=== PATIENT | female | born 1955 | race Caucasian/White ===

== ENCOUNTER 2017-05-25 16:47 | Inpatient (IN) | payer MEDICAID ==
--- NOTE | 2017-05-25 18:41 | PCM.HP ---
H&P History of Present Illness - General Date of Service: 05/25/17 Source of Information: Patient History Limitations: Reports: No Limitations - History of Present Illness Initial Comments - Free Text/Narative: This 62 year old white female originally from [facility] noted onset of diffuse abdominal pain last night which subsequently moved to her right lower quadrant. Nausea came on after the pain. It did not improve today so she sought medical care. She has not had similar complaints in the past. No fever nor chills. Her nausea has resolved. In the clinic she was found to be afebrile. WBC was normal at 10,000. CT of her abdomen and pelvis was ordered which return a dilated appendix at 14 mm with associated fat stranding consistent with acute non-perforated appendicitis. She went home after her CT and was called back in. At home she had a small salad and two small crackers. She is not anorexic. She is admitted for a laparoscopic appendectomy. Prior abdominal surgery consists of excision of a tubal in about 1979. Duration of Symptoms: Reports: Day(s): (Started last night.) Location: Reports: Abdomen Improves with: Reports: None Worsens with: Reports: None Associated Symptoms: Reports: Nausea/Vomiting (No vomiting. Nausea has resolved. ) - Related Data Allergies/Adverse Reactions: Allergies Allergy/AdvReac Type Severity Reaction Status Date / Time No Known Allergies Allergy Verified 05/25/17 12:45 Home Medications: Home Meds Bisoprolol [Zebeta] 5 mg PO DAILY 05/25/17 [History] Loratadine [Claritin] 10 mg PO DAILY 05/25/17 [History] Ranitidine [Zantac] 150 mg PO BID 05/25/17 [History] Rosuvastatin Calcium 10 mg PO DAILY 05/25/17 [History] Past Medical History Respiratory History: Reports: Bronchitis, Recurrent, Other (See Below) Other Respiratory History: Bronchitis 2007 / 2008 / 2009 Gastrointestinal History: Reports: Other (See Below) Other Gastrointestinal History: Abdominal Hernia [employer] History: Reports: Ectopic , Other (See Below) Other OB/BYN History: Hysterectomy - Infectious Disease History Infectious Disease History: Reports: Measles, Mumps - Past Surgical History Respiratory Surgical History: Reports: None Female Surgical History: Reports: Hysterectomy Dermatological Surgical History: Reports: None Social & Family History - Tobacco Use Smoking Status *Q: Never Smoker Second Hand Smoke Exposure: No - Caffeine Use Caffeine Use: Reports: Coffee - Alcohol Use Days Per Week of Alcohol Use: 3 Number of Drinks Per Day: 1 Total Drinks Per Week: 3 - Recreational Drug Use Recreational Drug Use: No H&P Review of Systems - Review of Systems: Review Of Systems: See Below General: Reports: No Symptoms HEENT: Reports: No Symptoms Pulmonary: Reports: No Symptoms Cardiovascular: Reports: No Symptoms Gastrointestinal: Reports: Abdominal Pain Genitourinary: Reports: No Symptoms Musculoskeletal: Reports: No Symptoms Skin: Reports: No Symptoms Psychiatric: Reports: No Symptoms Neurological: Reports: No Symptoms Hematologic/Lymphatic: Reports: No Symptoms Immunologic: Reports: No Symptoms Exam - Exam Exam: See Below - Vital Signs Vital Signs: Last Vital Signs Temp 97.3 F 05/25/17 17:07 Pulse 97 05/25/17 17:07 Resp 18 05/25/17 17:07 BP 133/82 05/25/17 17:07 Pulse Ox 99 05/25/17 17:07 Weight: 168 lb 2 oz - Exam General: Alert, Oriented, Cooperative, Other (No distress. ) Neck: No: Lymphadenopathy Lungs: Clear to Auscultation, Normal Respiratory Effort Cardiovascular: Regular Rate, Regular Rhythm GI/Abdominal Exam: Normal Bowel Sounds, Soft, No Distention, No Abnormal Bruit, No Mass, Pelvis Stable, Guarding, Tender (Right lower quadrant. ) Back Exam: Normal Inspection, Full Range of Motion Extremities: Normal Inspection Skin: Warm, Dry, Intact Neuro Extensive - Mental Status: Alert, Oriented x3, Normal Mood/Affect, Normal Cognition, Memory Intact Psychiatric: Alert, Normal Affect, Normal Mood - Patient Data Imaging Impressions Last 24 hrs: Acute appendicitis on CT of abdomen and pelvis. *Q Meaningful Use (ADM) - VTE *Q VTE Criteria *Q: - Stroke *Q Stroke Criteria *Q: - AMI *Q AMI Criteria *Q: - Problem List (1) Appendicitis, acute SNOMED Code(s): 37399341 ICD Code: K35.80 - UNSPECIFIED ACUTE APPENDICITIS Status: Acute Current Visit: Yes Problem List Initiated/Reviewed/Updated: Yes Assessment/Plan Comment:: Acute appendicitis. Plan: Laparoscopic appendectomy.
[2017-05-25] MEDS ORDERED: Lactated Ringers 1,000 ML IV SCH ×2 (18:45→20:45)
[2017-05-25] MEDS ORDERED: Sodium Chloride 0.9% 50 ML ONE (18:48)
[2017-05-25] MEDS ORDERED: Succinylcholine 200 MG/10 ML MDV ONE (18:49)
[2017-05-25] MEDS ORDERED: Ondansetron 4 MG/2 ML SDV ONE (18:49)
[2017-05-25] MEDS ORDERED: Glycopyrrolate 0.2 MG/ML 5 ML MDV ONE (18:49)
[2017-05-25] MEDS ORDERED: Propofol 200 MG/20 ML SDV ONE (18:49)
[2017-05-25] MEDS ORDERED: Neostigmine Methylsulfate 1 MG/ML 5 ML Syringe ONE (18:49)
[2017-05-25] MEDS ORDERED: Rocuronium 50 MG/5 ML Vial ONE (18:49)
[2017-05-25] MEDS ORDERED: Dexamethasone 4 MG/ML SDV ONE (18:49)
[2017-05-25] MEDS ORDERED: Lidocaine 1% with EPINEPHrine 1:100,000 50 ML MDV ONE (19:01)
[2017-05-25] MEDS ORDERED: Bupivacaine 0.5% 50 ML MDV ONE (19:01)
[2017-05-25] MEDS ORDERED: cefOXitin 2 GM in Sodium Chloride 0.9% 50 ML IV ONE (19:15)
[2017-05-25] MEDS: cefOXitin 2 GM Vial ONE ×2 (19:23→19:26)
[2017-05-25] MEDS ORDERED: hydrOXYzine HCl 100 MG/2 ML SDV IM PRN (20:43)
[2017-05-25] MEDS ORDERED: Ondansetron 4 MG/2 ML SDV IVPUSH PRN (20:43)
[2017-05-25] MEDS ORDERED: HYDROmorphone/Normal Saline 15 MG/30 ML PCA IV SCH (21:00)
[2017-05-26] MEDS ORDERED: D5 1/2 NS w/ 20 mEq/L KCl 1,000 ML IV SCH (06:30)
--- NOTE | 2017-05-26 06:31 | PCM.SURGPN ---
- General Info Date of Service: 05/26/17 Date of Surgery/Procedure: 05/25/17 POD#: 1 Post-Op Diagnosis: Acute non-perforated appendicitis Admission Diagnosis/Problem: Appendicitis Functional Status: Reports: Pain Controlled, Tolerating Diet (Sips of clear liquid.), Ambulating, Urinating - Review of Systems General: Reports: No Symptoms HEENT: Reports: No Symptoms Pulmonary: Reports: No Symptoms Cardiovascular: Reports: No Symptoms Gastrointestinal: Reports: Abdominal Pain (She is more sore than she was preoperatively. ). Denies: Nausea, Vomiting Genitourinary: Reports: No Symptoms Musculoskeletal: Reports: No Symptoms Skin: Reports: No Symptoms Neurological: Reports: No Symptoms Psychiatric: Reports: No Symptoms - Patient Data Vitals - Most Recent: Last Vital Signs Temp 97.6 F 05/26/17 03:00 Pulse 89 05/26/17 03:00 Resp 15 05/26/17 03:00 BP 136/87 05/26/17 03:00 Pulse Ox 97 05/26/17 03:00 Weight - Most Recent: 168 lb 2 oz I&O - Last 24 Hours: Intake & Output 05/25/17 05/25/17 05/26/17 14:59 22:59 06:59 Intake Total 1291 Output Total 120 825 Balance -120 466 Lab Results Last 24 Hrs: Laboratory Results - last 24 hr 05/26/17 05/26/17 Range/Units 04:50 04:50 WBC 10.6 (4.5-11.0) K/uL RBC 3.99 (3.30-5.50) M/uL Hgb 8.5 L (12.0-15.0) g/dL Hct 29.6 L (36.0-48.0) % MCV 74 L (80-98) fL MCH 21 L (27-31) pg MCHC 29 L (32-36) % Plt Count 359 (150-400) K/uL Sodium 139 L (140-148) mmol/L Potassium 4.8 (3.6-5.2) mmol/L Chloride 104 (100-108) mmol/L Carbon Dioxide 28 (21-32) mmol/L Anion Gap 11.8 (5.0-14.0) mmol/L BUN 13 (7-18) mg/dL Creatinine 0.7 (0.6-1.0) mg/dL Est Cr Clr Drug Dosing TNP Estimated GFR (MDRD) > 60 (>60) Glucose 128 H (74-106) mg/dL Calcium 8.8 (8.5-10.1) mg/dL Med Orders - Current: Current Medications Bisoprolol Fumarate (Zebeta) 5 mg PO DAILY [facility] Hydromorphone HCl (Dilaudid Road Crossing Guard 15 Mg In Ns 30 Ml) 15 mg IV ASDIRECTED LIZET PRN Reason: Protocol Last Admin: 05/25/17 21:50 Dose: 15 mg Hydroxyzine HCl (Vistaril) 50 mg IM Q4H PRN PRN Reason: Nausea Lactated Ringer's (Ringers, Lactated) 1,000 mls @ 125 mls/hr IV ASDIRECTED LIZET Last Admin: 05/26/17 02:04 Dose: 125 mls/hr Potassium Chloride/Dextrose/Sod Cl (D5 1/2 Ns W/ 20 Meq/L Kcl) 1,000 mls @ 50 mls/hr IV ASDIRECTED [facility] Loratadine (Claritin) 10 mg PO DAILY LIZ[facility] Ondansetron HCl (Zofran) 4 mg IVPUSH Q6H PRN PRN Reason: Nausea/Vomiting Ranitidine HCl (Zantac) 150 mg PO BID [facility] Rosuvastatin Calcium (Crestor) 10 mg PO DAILY [facility] Discontinued Medications Bupivacaine HCl (Marcaine 0.5%) Confirm Administered Dose 50 ml .ROUTE .STK-MED ONE Stop: 05/25/17 19:02 Last Admin: 05/25/17 20:03 Dose: 20 ml Cefoxitin Sodium (Mefoxin) Confirm Administered Dose 2 gm .ROUTE .STK-MED ONE Stop: 05/25/17 18:49 Last Admin: 05/25/17 19:26 Dose: Not Given Dexamethasone (Dexamethasone) Confirm Administered Dose 4 mg .ROUTE .STK-MED ONE Stop: 05/25/17 18:50 Fentanyl Citrate (Fentanyl) Confirm Administered Dose 500 mcg .ROUTE .STK-MED ONE Stop: 05/25/17 18:50 Glycopyrrolate (Robinul) Confirm Administered Dose 1 mg .ROUTE .STK-MED ONE Stop: 05/25/17 18:50 Cefoxitin Sodium 2 gm/ Sodium (Chloride) 50 mls @ 100 mls/hr IV ONETIME ONE Stop: 05/25/17 19:44 Last Admin: 05/25/17 19:26 Dose: Not Given Lactated Ringer's (Ringers, Lactated) 1,000 mls @ 500 mls/hr IV BOLUS LIZET Stop: 05/25/17 20:44 Last Admin: 05/25/17 19:24 Dose: 500 mls/hr Sodium Chloride (Normal Saline) Confirm Administered Dose 50 mls @ as directed .ROUTE .STK-MED ONE Stop: 05/25/17 18:49 Last Admin: 05/25/17 19:27 Dose: Not Given Lidocaine/Epinephrine (Xylocaine 1% With Epinephrine 1:100,000) Confirm Administered Dose 50 ml .ROUTE .STK-MED ONE Stop: 05/25/17 19:02 Last Admin: 05/25/17 20:03 Dose: 20 ml Neostigmine Methylsulfate (Neostigmine) Confirm Administered Dose 5 mg .ROUTE .STK-MED ONE Stop: 05/25/17 18:50 Ondansetron HCl (Zofran) Confirm Administered Dose 4 mg .ROUTE .STK-MED ONE Stop: 05/25/17 18:50 Propofol (Diprivan 20 Ml) Confirm Administered Dose 200 mg .ROUTE .STK-MED ONE Stop: 05/25/17 18:50 Rocuronium [place] (Zemuron) Confirm Administered Dose 50 mg .ROUTE .STK-MED ONE Stop: 05/25/17 18:50 Succinylcholine Chloride (Quelicin) Confirm Administered Dose 200 mg .ROUTE .STK -MED ONE Stop: 05/25/17 18:50 - Exam Wound/Incisions: Healing Well, No Drainage Quality Assessment: DVT Prophylaxis General: Alert, Oriented, Cooperative, No Acute Distress Lungs: Clear to Auscultation, Normal Respiratory Effort Cardiovascular: Regular Rate, Regular Rhythm GI/Abdominal Exam: Normal Bowel Sounds, Soft, Non-Tender, No Organomegaly, No Distention, No Mass, Pelvis Stable Extremities: Normal Inspection, Normal Range of Motion, Slow Capillary Refill Skin: Warm, Dry, Intact Neurological: No New Focal Deficit Psy/Mental Status: Alert, Normal Affect, Normal Mood - Problem List & Annotations (1) Appendicitis, acute SNOMED Code(s): 60122207 Code(s): K35.80 - UNSPECIFIED ACUTE APPENDICITIS Status: Acute Current Visit: Yes - Problem List Review Problem List Initiated/Reviewed/Updated: Yes - My Orders Last 24 Hours: Active Orders 24 hr Category Date Time Status Patient Status [ADT] Routine ADT 05/25/17 20:43 Active Ambulate [RC] ASDIRECTED Care 05/25/17 20:43 Active Ambulate [RC] PER UNIT ROUTINE Care 05/25/17 20:43 Active Antiembolic Devices [RC] .Routine Care 05/25/17 20:47 Active Intake and Output [RC] Q4HR Care 05/25/17 20:46 Active Notify Provider Vital Signs [RC] PRN Care 05/25/17 20:46 Active Oxygen Therapy [RC] PRN Care 05/25/17 20:43 Active Pulse Oximetry [RC] CONTINUOUS Care 05/25/17 20:46 Active RT Incentive Spirometry [RC] ASDIRECTED Care 05/25/17 20:43 Active Up With Assistance [RC] ASDIRECTED Care 05/25/17 20:43 Active Up ad Monae [RC] ASDIRECTED Care 05/25/17 20:43 Active Up to Chair [RC] ASDIRECTED Care 05/25/17 20:43 Active VTE/DVT Education [RC] Click to Edit Care 05/25/17 20:47 Active Vital Signs [RC] Q4H Care 05/26/17 03:00 Active Respiratory Care Assess and Treatment [CONS] Routine Cons 05/25/17 20:43 Active Advance Diet Instructions [DIET] Diet 05/25/17 Dinner Active Bisoprolol [Zebeta] Med 05/26/17 09:00 Active 5 mg PO DAILY D5 1/2 NS w/ 20 mEq/L KCl 1,000 ml Med 05/26/17 06:30 Ordered IV ASDIRECTED HYDROmorphone/Normal Saline [Dilaudid [employer]ER 15 MG in NS Med 05/25/17 21:00 Active 30 ML] 15 mg IV ASDIRECTED Lactated Ringers [Ringers, Lactated] 1,000 ml Med 05/25/17 20:45 Stop Req IV ASDIRECTED Loratadine [Claritin] Med 05/26/17 09:00 Active 10 mg PO DAILY Ondansetron [Zofran] Med 05/25/17 20:43 Active 4 mg IVPUSH Q6H PRN Ranitidine [Zantac] Med 05/26/17 09:00 Active 150 mg PO BID Rosuvastatin [Crestor] Med 05/26/17 09:00 Active 10 mg PO DAILY hydrOXYzine HCl [Vistaril] Med 05/25/17 20:43 Active 50 mg IM Q4H PRN Abdominal Binder [OM.PC] Per Unit Routine Oth 05/25/17 20:46 Ordered DVT/VTE Prophylaxis Reflex [OM.PC] Per Unit Routine Oth 05/25/17 20:47 Ordered Sequential Compression Device [OM.PC] Routine Oth 05/25/17 20:43 Ordered Resuscitation Status Routine Resus Stat 05/25/17 20:43 Ordered Medication Orders Bisoprolol Fumarate (Zebeta) 5 mg PO DAILY [facility] Hydromorphone HCl (Dilaudid Road Crossing Guard 15 Mg In Ns 30 Ml) 15 mg IV ASDIRECTED [facility] PRN Reason: Protocol Last Admin: 05/25/17 21:50 Dose: 15 mg Hydroxyzine HCl (Vistaril) 50 mg IM Q4H PRN PRN Reason: Nausea Lactated Ringer's (Ringers, Lactated) 1,000 mls @ 125 mls/hr IV ASDIRECTED [facility] Last Admin: 05/26/17 02:04 Dose: 125 mls/hr Potassium Chloride/Dextrose/Sod Cl (D5 1/2 Ns W/ 20 Meq/L Kcl) 1,000 mls @ 50 mls/hr IV ASDIRECTED [facility] Loratadine (Claritin) 10 mg PO DAILY [facility] Ondansetron HCl (Zofran) 4 mg IVPUSH Q6H PRN PRN Reason: Nausea/Vomiting Ranitidine HCl (Zantac) 150 mg PO BID [facility] Rosuvastatin Calcium (Crestor) 10 mg PO DAILY [facility] - Assessment Assessment (Free Text/Narrative):: Doing well. Hgb 8.5 (was 10 preop). Two voids last night. - Plan Plan (Free Text/Narrative):: Decrease fluids. Clear liquids for breakfast, if tolerated advance toward regular.
[2017-05-26] MEDS ORDERED: Naloxone 0.4 MG/ML SDV IV PRN (07:19)
--- NOTE | 2017-05-26 07:35 | OR ---
DATE OF PROCEDURE: 05/25/2017 PREOPERATIVE DIAGNOSIS: Acute appendicitis. POSTOPERATIVE DIAGNOSIS: Acute nonperforated appendicitis. PROCEDURE: Laparoscopic appendectomy. SURGEON: John Zayas MD ANESTHESIA: General endotracheal. INDICATION: This 62-year-old white female, last night, noted onset of diffuse abdominal pain. When she palpated her abdomen; however, she realized she was tender in the right lower quadrant, and that is where her pain then centered. She experienced nausea but no vomiting. No fever. No chills. The pain and nausea persisted, so today she came into the clinic to be checked. Here, she is found to be tender in the right lower quadrant, afebrile, and a white count of about 10,000 was seen. She was sent for CAT scan of her abdomen and pelvis, which returned as acute appendicitis. No evidence of perforation or abscess. Prior abdominal surgery consists of excision of a tubal almost 40 years ago. I counseled her for a laparoscopic appendectomy including risks and alternatives, and she gave her informed consent to proceed. DESCRIPTION OF PROCEDURE: After adequate general endotracheal anesthesia was obtained, a Walker catheter was placed. The leg compression stockings were in place and used during the entire procedure. Her abdomen was prepped and draped in the usual sterile fashion. Time-out was held. An infraumbilical semicircular incision was made. Under direct vision, a 12 mm port was introduced in the abdomen through this incision. The camera was introduced into the abdomen and the abdomen was insufflated to a pressure of 20 mmHg with carbon dioxide. No evidence of intraabdominal injury was seen. Under direct vision, 12 mm ports were placed in the right upper and left lower quadrants. It was noted that there was no fluid in the abdomen. We mobilized up her appendix and noted that it was injected and markedly distended consistent with acute nonperforated appendicitis. The base of the appendix was divided with the endoscopic MARCUS using a blue load. The mesoappendix was then divided with the endoscopic MARCUS using a white load. The appendix was placed in a sample retrieval bag and the bag was elevated up through the anterior abdominal wall via the right upper quadrant port site and delivered from the field. The right upper quadrant port was re-introduced back into the abdomen. The right lower quadrant was irrigated and suctioned dry. Hemostasis was obtained with electrocautery. All looked well. The fascial closure device was used to place 0 Vicryl stitches in the right upper and left lower quadrant fascial defects. After both stitches were placed, they were tied down. The camera was then removed with the infraumbilical port and an interrupted stitch of 0 Vicryl used to close this fascial defect. Before tying the stitch down, we did evacuate as much CO2 as we could from the abdomen. The stitch was then tied down. Lidocaine 1% with epinephrine in a 50:50 mix with 0.5% Marcaine was infiltrated about all incisions. 4-0 Vicryl using a subcuticular stitch was placed to approximate the skin in the three incisions. Dermabond was applied. She tolerated the procedure well and was brought to recovery room in good condition. John Zayas MD /[id number] MTDRich
[2017-05-26] MEDS: Loratadine 10 MG Tab PO SCH (09:05)
[2017-05-26] MEDS: Rosuvastatin 10 MG Tab PO SCH (09:05)
[2017-05-26] MEDS: Bisoprolol 5 MG Tab PO SCH (16:28)
[2017-05-27] MEDS ORDERED: Acetaminophen/HYDROcodone 325-5 MG Tab PO PRN (08:15)
[2017-05-27] MEDS: Loratadine 10 MG Tab PO SCH (08:59)
[2017-05-27] MEDS: Bisoprolol 5 MG Tab PO SCH (08:59)
[2017-05-27] MEDS: Rosuvastatin 10 MG Tab PO SCH (08:59)
--- NOTE | 2017-05-27 09:48 | PCM.DCSUM1 ---
Discharge Summary - Hospital Course Free Text/Narrative:: This 62 year old white female presented to the clinic complaining of abdominal pain. She was found to have appendicitis. She was taken to the OR that night for a laparoscopic appendectomy. The next day she was a little slow to recover. Currently she is eating a regular diet, feels much better and is ready to go home. She is discharged at this time in good condition. Brief History: See aove narrative - Discharge Data Discharge Date: 05/27/17 Discharge Disposition: Home, Self-Care 01 Condition: Good - Discharge Diagnosis/Problem(s) (1) Appendicitis, acute SNOMED Code(s): 38749559 ICD Code: K35.80 - UNSPECIFIED ACUTE APPENDICITIS Status: Acute Current Visit: Yes - Patient Summary/Data Operative Procedure(s) Performed: Laparoscopic appendectomy. Consults: Consultations 05/25/17 20:43 Respiratory Care Assess and Treatment [CONS] Routine Comment: Physician Instructions: Hospital Course: See above narrative. - Patient Instructions Diet: Usual Diet as Tolerated Activity, Other: Avoid activity that causes discomfort. Driving, Other: Do not drive while taking narcotic pain medication. Showering/Bathing: May Shower Notify Provider of: Fever, Increased Pain, Swelling and Redness, Drainage, Nausea and/or Vomiting - Discharge Plan Prescriptions/Med Rec: Acetaminophen/HYDROcodone [[place] 325-5 MG] 1 - 2 tab PO Q4H PRN #30 tablet PRN Reason: Abdominal Pain Home Medications: Home Meds Bisoprolol [Zebeta] 5 mg PO DAILY 05/25/17 [History] Loratadine [Claritin] 10 mg PO DAILY 05/25/17 [History] Ranitidine [Zantac] 150 mg PO BID 05/25/17 [History] Rosuvastatin Calcium 10 mg PO DAILY 05/25/17 [History] Acetaminophen/HYDROcodone [[place] 325-5 MG] 1 - 2 tab PO Q4H PRN #30 tablet 05/27 [Rx] Referrals: John Zayas MD [Physician] - - Discharge Summary/Plan Comment DC Time >30 min.: Yes Discharge Summary/Plan Comment: See above narrative. - Patient Data Vitals - Most Recent: Last Vital Signs Temp 97.9 F 05/27/17 09:00 Pulse 82 05/27/17 09:00 Resp 16 05/27/17 09:00 BP 129/77 05/27/17 09:00 Pulse Ox 97 05/27/17 09:00 Weight - Most Recent: 168 lb 1.992 oz I&O - Last 24 hours: Intake & Output 05/26/17 05/27/17 05/27/17 22:59 06:59 14:59 Intake Total 240 836 Output Total 800 1000 300 Balance -560 -164 -300 Lab Results - Last 24 hrs: Laboratory Results - last 24 hr 05/26/17 Range/Units 17:24 WBC 15.9 H (4.5-11.0) K/uL RBC 4.02 (3.30-5.50) M/uL Hgb 8.8 L (12.0-15.0) g/dL Hct 30.1 L (36.0-48.0) % MCV 75 L (80-98) fL MCH 22 L (27-31) pg MCHC 29 L (32-36) % Plt Count 377 (150-400) K/uL Med Orders - Current: Current Medications Hydrocodone Bitart/Acetaminophen ([place] 325-5 Mg) 1 - 2 tab PO Q4H PRN PRN Reason: Pain Last Admin: 05/27/17 08:58 Dose: 2 tab Bisoprolol Fumarate (Zebeta) 5 mg PO DAILY [facility] Last Admin: 05/27/17 08:59 Dose: Not Given Hydroxyzine HCl (Vistaril) 50 mg IM Q4H PRN PRN Reason: Nausea Potassium Chloride/Dextrose/Sod Cl (D5 1/2 Ns W/ 20 Meq/L Kcl) 1,000 mls @ 50 mls/hr IV ASDIRECTED [facility] Last Admin: 05/27/17 05:19 Dose: 50 mls/hr Loratadine (Claritin) 10 mg PO DAILY [facility] Last Admin: 05/27/17 08:59 Dose: Not Given Ondansetron HCl (Zofran) 4 mg IVPUSH Q6H PRN PRN Reason: Nausea/Vomiting Ranitidine HCl (Zantac) 150 mg PO BID [facility] Last Admin: 05/27/17 08:59 Dose: Not Given Rosuvastatin Calcium (Crestor) 10 mg PO DAILY [facility] Last Admin: 05/27/17 08:59 Dose: Not Given Discontinued Medications Bupivacaine HCl (Marcaine 0.5%) Confirm Administered Dose 50 ml .ROUTE .[facility]-MED ONE Stop: 05/25/17 19:02 Last Admin: 05/25/17 20:03 Dose: 20 ml Cefoxitin Sodium (Mefoxin) Confirm Administered Dose 2 gm .ROUTE .ST-MED ONE Stop: 05/25/17 18:49 Last Admin: 05/25/17 19:26 Dose: Not Given Dexamethasone (Dexamethasone) Confirm Administered Dose 4 mg .ROUTE .ST-MED ONE Stop: 05/25/17 18:50 Fentanyl Citrate (Fentanyl) Confirm Administered Dose 500 mcg .ROUTE .[facility]-MED ONE Stop: 05/25/17 18:50 Glycopyrrolate (Robinul) Confirm Administered Dose 1 mg .ROUTE .[facility] ONE Stop: 05/25/17 18:50 Hydromorphone HCl (Dilaudid [employer] 15 Mg In Ns 30 Ml) 15 mg IV ASDIRECTED LIZET PRN Reason: Protocol Last Admin: 05/25/17 21:50 Dose: 15 mg Cefoxitin Sodium 2 gm/ Sodium (Chloride) 50 mls @ 100 mls/hr IV ONETIME ONE Stop: 05/25/17 19:44 Last Admin: 05/25/17 19:26 Dose: Not Given Lactated Ringer's (Ringers, Lactated) 1,000 mls @ 500 mls/hr IV BOLUS LIZET Stop: 05/25/17 20:44 Last Admin: 05/25/17 19:24 Dose: 500 mls/hr Sodium Chloride (Normal Saline) Confirm Administered Dose 50 mls @ as directed .ROUTE .[facility] ONE Stop: 05/25/17 18:49 Last Admin: 05/25/17 19:27 Dose: Not Given Lactated Ringer's (Ringers, Lactated) 1,000 mls @ 125 mls/hr IV ASDIRECTED LIZET Last Admin: 05/26/17 02:04 Dose: 125 mls/hr Lidocaine/Epinephrine (Xylocaine 1% With Epinephrine 1:100,000) Confirm Administered Dose 50 ml .ROUTE .ST-MED ONE Stop: 05/25/17 19:02 Last Admin: 05/25/17 20:03 Dose: 20 ml Naloxone HCl (Narcan) 0.1 mg IV ASDIRECTED PRN PRN Reason: decreased respiratory rate Neostigmine Methylsulfate (Neostigmine) Confirm Administered Dose 5 mg .ROUTE .STK-MED ONE Stop: 05/25/17 18:50 Ondansetron HCl (Zofran) Confirm Administered Dose 4 mg .ROUTE .STK-MED ONE Stop: 05/25/17 18:50 Propofol (Diprivan 20 Ml) Confirm Administered Dose 200 mg .ROUTE .STK-MED ONE Stop: 05/25/17 18:50 Rocuronium [place] (Zemuron) Confirm Administered Dose 50 mg .ROUTE .STK-MED ONE Stop: 05/25/17 18:50 Succinylcholine Chloride (Quelicin) Confirm Administered Dose 200 mg .ROUTE .STK -MED ONE Stop: 05/25/17 18:50 *Q Meaningful Use (DIS) - VTE *Q VTE Criteria *Q: - Stroke *Q Stroke Criteria *Q: - AMI *Q AMI Criteria *Q:
== END 2017-05-27 11:30 | disposition home or self-care (01) | DRG 343 ==
LOC: JP.MS 16:47
PROVIDERS: ADMIT Surgery; ATTEND Surgery
PROC: 0DTJ4ZZ Resection of Appendix, Percutaneous Endoscopic Approach (ICD-10-PCS; principal; 2017-05-25)
DX: K35.80 Unspecified acute appendicitis (principal)
CPT/HCPCS: 36415; 74177; 74177-26; 80048; 85027; 88304; 94762; A9270-GY; J0330; J0694; J1100; J1170; J2405; J2704; J2710; J3010; J3480; J7030; J7120; Q9965; Q9967

== ENCOUNTER 2017-06-17 15:19 | Emergency (ER) | payer MEDICAID ==
--- NOTE | 2017-06-17 15:55 | EDM.PDOC ---
ED HPI GENERAL MEDICAL PROBLEM - General Chief Complaint: Abdominal Pain Stated Complaint: PAIN IN MID STOMACH AREA AND GOES AROUND SIDE Time Seen by Provider: 06/17/17 15:53 Source of Information: Reports: Patient History Limitations: Reports: No Limitations - History of Present Illness INITIAL COMMENTS - FREE TEXT/NARRATIVE: pt had an appendectomy on May 25. She was doing well and 2 weeks after surgery she fell. She developed acute pain after the fall. It started the following day after she fell. Onset: Gradual Duration: Day(s): Location: Reports: Abdomen Associated Symptoms: Reports: No Other Symptoms Abdominal Pain Score (Numeric/FACES): 4 - Related Data Allergies Allergy/AdvReac Type Severity Reaction Status Date / Time No Known Allergies Allergy Verified 05/25/17 12:45 Home Meds: Home Meds Rosuvastatin Calcium 10 mg PO DAILY 05/25/17 [History] *Bilicor 5mg 5 mg PO DAILY 06/17/17 [History] Ferrous Sulfate [Ferrous Sulfate] 325 mg PO BID 06/17/17 [History] Past Medical History Respiratory History: Reports: Bronchitis, Recurrent, Other (See Below) Other Respiratory History: Bronchitis 2007 / 2008 / 2009 Gastrointestinal History: Reports: Other (See Below) Other Gastrointestinal History: Abdominal Hernia 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 , Other (See Below) Other OB/BYN History: Hysterectomy - Infectious Disease History Infectious Disease History: Reports: Measles, Mumps - Past Surgical History Respiratory Surgical History: Reports: None GI Surgical History: Reports: Appendectomy Female Surgical History: Reports: Hysterectomy Dermatological Surgical History: Reports: None Social & Family History - Tobacco Use Smoking Status *Q: Never Smoker Second Hand Smoke Exposure: No - Caffeine Use Caffeine Use: Reports: Coffee - Alcohol Use Days Per Week of Alcohol Use: 3 Number of Drinks Per Day: 1 Total Drinks Per Week: 3 - Recreational Drug Use Recreational Drug Use: No ED ROS GENERAL - Review of Systems Review Of Systems: See Below Constitutional: Reports: No Symptoms HEENT: Reports: No Symptoms Respiratory: Reports: No Symptoms Cardiovascular: Reports: No Symptoms Endocrine: Reports: No Symptoms GI/Abdominal: Reports: Abdominal Pain, Other (pt has low grade pain all of the time. She has severe pain when she coughes. ) : Reports: No Symptoms Musculoskeletal: Reports: No Symptoms Skin: Reports: No Symptoms ED EXAM, GI/ABD - Physical Exam Exam: See Below Text/Narrative:: pt arrived with pain in the rt side of her abdoman. She fallen about 1 week ago and since that time she had increased abdomanal pain. She did not have a fever. Exam Limited By: No Limitations General Appearance: Alert, Anxious Ears: Normal TMs Nose: Normal Inspection Throat/Mouth: Normal Inspection Head: Atraumatic Neck: Normal Inspection Respiratory/Chest: No Respiratory Distress Cardiovascular: Regular Rate, Rhythm GI/Abdominal Exam: Tender, Other (tender in the periumbilical area. ) (Female) Exam: Deferred Rectal (Female) Exam: Other ( stools have been normal. ) Back Exam: Normal Inspection Extremities: Normal Inspection Neurological: Alert, Oriented, Normal Cognition Psychiatric: Normal Affect Course - Vital Signs Last Recorded V/S: Last Vital Signs Temp 36.1 C 06/17/17 15:36 Pulse 76 06/17/17 15:36 Resp 16 06/17/17 15:36 BP 159/91 H 06/17/17 15:36 Pulse Ox 97 06/17/17 15:36 - Orders/Labs/Meds Labs: Laboratory Tests 06/17/17 06/17/17 06/17/17 Range/Units 16:00 16:00 16:00 WBC 7.6 (4.5-11.0) K/uL RBC 4.84 (3.30-5.50) M/uL Hgb 11.4 L D (12.0-15.0) g/dL Hct 38.2 (36.0-48.0) % MCV 79 L (80-98) fL MCH 24 L (27-31) pg MCHC 30 L (32-36) % Plt Count 389 (150-400) K/uL Neut % (Auto) 66 (36-66) % Lymph % (Auto) 21 L (24-44) % [place] % (Auto) 10 H (2-6) % Eos % (Auto) 2 (2-4) % Baso % (Auto) 1 (0-1) % Sodium 141 (140-148) mmol/L Potassium 4.0 (3.6-5.2) mmol/L Chloride 104 (100-108) mmol/L Carbon Dioxide 28 (21-32) mmol/L Anion Gap 9.1 (5.0-14.0) mmol/L BUN 17 (7-18) mg/dL Creatinine 0.9 (0.6-1.0) mg/dL Est Cr Clr Drug Dosing 60.08 mL/min Estimated GFR (MDRD) > 60 (>60) Glucose 93 (74-106) mg/dL Calcium 9.5 (8.5-10.1) mg/dL Total Bilirubin 1.0 (0.2-1.0) mg/dL AST 19 (15-37) U/L ALT 22 (12-78) U/L Alkaline Phosphatase 62 (46-116) U/L C-Reactive Protein 0.07 (0.0-0.3) mg/dL Total Protein 7.4 (6.4-8.2) g/dL Albumin 4.0 (3.4-5.0) g/dL Globulin 3.4 (2.3-3.5) g/dL Albumin/Globulin Ratio 1.2 (1.2-2.2) Urine Color Urine Appearance Urine pH (4.5-8.0) Ur Specific [place] (1.008-1.030) Urine Protein (NEGATIVE) mg/dL Urine Glucose (UA) (NEGATIVE) mg/dL Urine Ketones (NEGATIVE) mg/dL Urine Occult Blood (NEGATIVE) Urine Nitrite (NEGATIVE) Urine Bilirubin (NEGATIVE) Urine Urobilinogen (NORMAL) mg/dL Ur Leukocyte Esterase (NEGATIVE) Urine RBC (0-5) Urine WBC (0-5) Ur Epithelial Cells Amorphous Sediment Urine Bacteria Urine Mucus 06/17/17 Range/Units 16:33 WBC (4.5-11.0) K/uL RBC (3.30-5.50) M/uL Hgb (12.0-15.0) g/dL Hct (36.0-48.0) % MCV (80-98) fL MCH (27-31) pg MCHC (32-36) % Plt Count (150-400) K/uL Neut % (Auto) (36-66) % Lymph % (Auto) (24-44) % [place] % (Auto) (2-6) % Eos % (Auto) (2-4) % Baso % (Auto) (0-1) % Sodium (140-148) mmol/L Potassium (3.6-5.2) mmol/L Chloride (100-108) mmol/L Carbon Dioxide (21-32) mmol/L Anion Gap (5.0-14.0) mmol/L BUN (7-18) mg/dL Creatinine (0.6-1.0) mg/dL Est Cr Clr Drug Dosing mL/min Estimated GFR (MDRD) (>60) Glucose (74-106) mg/dL Calcium (8.5-10.1) mg/dL Total Bilirubin (0.2-1.0) mg/dL AST (15-37) U/L ALT (12-78) U/L Alkaline Phosphatase (46-116) U/L C-Reactive Protein (0.0-0.3) mg/dL Total Protein (6.4-8.2) g/dL Albumin (3.4-5.0) g/dL Globulin (2.3-3.5) g/dL Albumin/Globulin Ratio (1.2-2.2) Urine Color Yellow Urine Appearance Clear Urine pH 5.0 (4.5-8.0) Ur Specific [place] 1.030 (1.008-1.030) Urine Protein Negative (NEGATIVE) mg/dL Urine Glucose (UA) Normal (NEGATIVE) mg/dL Urine Ketones Negative (NEGATIVE) mg/dL Urine Occult Blood Negative (NEGATIVE) Urine Nitrite Negative (NEGATIVE) Urine Bilirubin Negative (NEGATIVE) Urine Urobilinogen Normal (NORMAL) mg/dL Ur Leukocyte Esterase Negative (NEGATIVE) Urine RBC 0-5 (0-5) Urine WBC 0-5 (0-5) Ur Epithelial Cells Moderate Amorphous Sediment Not seen Urine Bacteria Few Urine Mucus Many - Re-Assessments/Exams Free Text/Narrative Re-Assessment/Exam: 06/17/17 16:50 lab work looked normal. She is mildly dehydrated. will have her see Dr Wu next week. If pain is worse she will return. Departure - Departure Time of Disposition: 16:51 Disposition: Home, Self-Care 01 Condition: Fair Clinical Impression: Abdominal wall pain, Dehydration, Status post appendectomy - Discharge Information Instructions: Abdominal Pain, Adult, Dehydration, Adult Referrals: Jaylen Kiran PA [Primary Care Provider] - Forms: ED Department Discharge Care Plan Goals: push fluids, appt with Dr Wu next week.
== END 2017-06-17 17:20 | disposition home or self-care (01) ==
LOC: JP.ED 15:19
DX: R10.9 Unspecified abdominal pain (principal); E86.0 Dehydration; Z90.49 Acquired absence of other specified parts of digestive tract; Z79.899 Other long term (current) drug therapy
CPT/HCPCS: 36415; 80053; 81001; 85025; 86140; 99284